=== PATIENT | female | born 1990 | race Caucasian/White ===

== ENCOUNTER 2019-04-25 16:42 | Observation (INO) | payer OTHER ==
[2019-04-25 18:52] VITALS: BP 127/69
[2019-04-25] MEDS ORDERED: NIFEdipine 10 MG CAPSULE PO ONE (20:45)
[2019-04-25] MEDS ORDERED: INFLUENZA VIRUS VACCINE QVS 2019-20 (3YR+)/PF 60 MCG/0.5 ML SYRINGE IM ONE (23:00)
== END 2019-04-25 23:25 | disposition home or self-care (01) ==
LOC: 4S 16:42
PROVIDERS: ADMIT Obstetrics & Gynecology; ATTEND Obstetrics & Gynecology
DX: O34.63 Maternal care for abnormality of vagina, third trimester (principal); N89.8 Other specified noninflammatory disorders of vagina; Z23 Encounter for immunization; Z3A.32 32 weeks gestation of pregnancy
CPT/HCPCS: 36415; 59025; 81001; 82731; 87070; 87081; 87210; 87491; 87591; 89060; 90471; 90686; G0378

== ENCOUNTER 2019-05-30 09:40 | Inpatient (IN) | payer OTHER ==
[~2019-05-30] VITALS: Ht 165.1 cm; Wt 82.1 kg
[2019-05-30 10:04] VITALS: BP 112/65
[2019-05-30] MEDS ORDERED: NIFEdipine 10 MG CAPSULE PO ONE ×2 (12:15→20:00)
[2019-05-30] MEDS: RINGERS SOLUTION,LACTATED 1,000 ML IV SCH ×3 (14:24→22:47)
[2019-05-30] MEDS ORDERED: ACETAMINOPHEN 500 MG TABLET PO ONE (14:45)
[2019-05-30] MEDS: ACETAMINOPHEN 500 MG TABLET PO PRN (20:09)
[2019-05-30 21:06] LABS: BASOPHILS % (AUTO) 0.3 % (0.0-2.0); EOSINOPHILS % (AUTO) 1.2 % (1.0-6.0); HEMATOCRIT 40.2 % (36-46); HEMOGLOBIN 13.8 g/dL (12.0-16.0); LYMPHOCYTES % (AUTO) 30.7 % (22.0-44.0); MEAN CORPUSCULAR HEMOGLOBIN 31.6 pg (26.0-34.0); MEAN CORPUSCULAR HGB CONC 34.3 G/dL (31.0-37.0); MEAN CORPUSCULAR VOLUME 92 fL (80-100); MONOCYTES # (AUTO) 0.5 K/uL (0.1-1.0); MONOCYTES % (AUTO) 8.3 % (2.0-9.0); NEUTROPHILS # (AUTO) 3.8 K/uL (1.8-7.7); NEUTROPHILS % (AUTO) 59.5 % (40.0-70.0); PLATELET COUNT (AUTO)-OB 182 K/uL (150-450); RED BLOOD CELL COUNT(AUTO) 4.36 MIL/uL (4.00-5.20); RED CELL DISTRIBUTION WIDTH 12.9 % (11.5-14.5)
[2019-05-30 21:15] LABS: ANION GAP 9 mmol/L (8-16); CALCIUM, TOTAL 8.7 mg/dL (8.8-10.5); CARBON DIOXIDE 24 mmol/L (22-29); CHLORIDE 105 mmol/L (98-107); CREATININE 0.72 mg/dL (0.60-1.30); GLOMERULAR FILTR. RATE CALC > 60 mL/min (>60); GLUCOSE,RANDOM 95 mg/dL (70-110); POTASSIUM 3.8 mmol/L (3.5-5.1); SODIUM SERUM 138 mmol/L (136-145); UREA NITROGEN, BLOOD 9 mg/dL (7-18)
[2019-05-30 21:21] LABS: ALANINE AMINOTRANSFERASE 13 U/L (12-78); ALBUMIN 2.7 g/dL (3.4-5.0); ALKALINE PHOSPHATASE 136 U/L (46-116); ASPARTATE AMINOTRANSFERASE 12 U/L (15-37); BILIRUBIN,TOTAL 0.2 mg/dL (0.1-1.0); TOTAL PROTEIN, SERUM 6.4 g/dL (6.4-8.2)
[2019-05-30] MEDS ORDERED: NIFEdipine 10 MG CAPSULE PO PRN (22:00)
[2019-05-31] MEDS: ACETAMINOPHEN 500 MG TABLET PO PRN (00:07)
[2019-05-31] MEDS: RINGERS SOLUTION,LACTATED 1,000 ML IV SCH ×2 (04:55→07:40)
[2019-05-31] MEDS ORDERED: PNV1TABL54 PO (06:18)
[2019-05-31] MEDS ORDERED: BUPIVACAINE HCL/DEX-WATER/PF 0.75% 2 ML AMP ONE (06:36)
[2019-05-31] MEDS ORDERED: RINGERS SOLUTION,LACTATED 1,000 ML IV ONE (06:36)
[2019-05-31] MEDS ORDERED: SODIUM CHLORIDE 0.9% 1,000 ML ONE (06:36)
[2019-05-31] MEDS ORDERED: METOCLOPRAMIDE HCL 5 MG/ML 2 ML VIAL IVP ONE ×2 (07:00→12:00)
[2019-05-31] MEDS ORDERED: CITRIC ACID/SODIUM CITRATE 30 ML SOLUTION UDCUP PO ONE (07:00)
[2019-05-31] MEDS ORDERED: HYDROmorphone 2 MG/ML SYRINGE IVP PRN ×2 (07:45→08:30)
[2019-05-31] MEDS ORDERED: FentaNYL CITRATE-PF 100 MCG/2 ML VIAL IVP PRN ×2 (07:45→08:30)
[2019-05-31] MEDS ORDERED: MEPERIDINE-PF 25 MG/ML VIAL IVP PRN ×2 (07:45→08:30)
[2019-05-31] MEDS ORDERED: OXYGEN THERAPY IH SCH ×3 (08:00→20:00)
[2019-05-31] MEDS ORDERED: ONDANSETRON HCL 4 MG/2 ML VIAL IVP PRN (08:30)
[2019-05-31] MEDS ORDERED: NALOXONE HCL 0.4 MG/ML VIAL IVP PRN (08:30)
[2019-05-31] MEDS ORDERED: OxyCODONE HCL/ACETAMINOPHEN 5-325 MG TABLET PO PRN (08:30)
[2019-05-31] MEDS ORDERED: DiphenhydrAMINE HCL 50 MG/ML VIAL IVP PRN (08:30)
[2019-05-31] MEDS ORDERED: FentaNYL CITRATE-PF 100 MCG/2 ML VIAL ONE (09:39)
[2019-05-31] MEDS ORDERED: LANOLIN 7 GM OINTMENT TP PRN (10:15)
[2019-05-31] MEDS ORDERED: ACETAMINOPHEN/CODEINE 300-30 MG TABLET PO PRN ×2 (10:15)
[2019-05-31] MEDS ORDERED: ONDANSETRON HCL 4 MG/2 ML VIAL ONE (10:26)
[2019-05-31] MEDS ORDERED: DEXTROSE 5%-0.45% SODIUM CHL 1,000 ML IV ONE (11:14)
[2019-05-31] MEDS: DEXTROSE 5%-0.45% SODIUM CHL 1,000 ML IV SCH ×3 (11:17→19:28)
[2019-05-31] MEDS ORDERED: ONDANSETRON HCL 4 MG/2 ML VIAL IVP ONE (12:00)
[2019-05-31] MEDS ORDERED: KETOROLAC TROMETHAMINE 60 MG/2 ML VIAL IM ONE (12:00)
[2019-05-31] MEDS ORDERED: DEXAMETHASONE SOD PHOS 4 MG/ML VIAL IVP ONE (12:00)
[2019-05-31] MEDS: KETOROLAC TROMETHAMINE 30 MG/ML VIAL IVP SCH ×2 (13:02→19:27)
[2019-06-01] MEDS: DEXTROSE 5%-0.45% SODIUM CHL 1,000 ML IV SCH (00:17)
[2019-06-01] MEDS: KETOROLAC TROMETHAMINE 30 MG/ML VIAL IVP SCH ×2 (01:19→07:40)
[2019-06-01] MEDS ORDERED: IBUPROFEN 800 MG TABLET PO SCH (02:00)
[2019-06-01] MEDS: IBUPROFEN 800 MG TABLET PO SCH (20:07)
[2019-06-01] MEDS: MAGNESIUM HYDROXIDE SUSPENSION 30 ML UDCUP PO SCH (20:08)
[2019-06-02] MEDS: IBUPROFEN 800 MG TABLET PO SCH ×4 (01:53→20:54)
[2019-06-02] MEDS: MAGNESIUM HYDROXIDE SUSPENSION 30 ML UDCUP PO SCH ×3 (08:11→10:12)
[2019-06-02] MEDS ORDERED: SENNA/DOCUSATE SODIUM 8.6-50 MG TABLET PO ONE (10:15)
[2019-06-03] MEDS: IBUPROFEN 800 MG TABLET PO SCH ×4 (02:21→20:47)
[2019-06-04] MEDS: IBUPROFEN 800 MG TABLET PO SCH ×2 (02:06→08:41)
[2019-06-04] MEDS ORDERED: PERCT PO (07:34)
[2019-06-04] MEDS ORDERED: ACET-66 PO (07:35)
[2019-06-04] MEDS ORDERED: DOCU-275 PO (07:36)
[2019-06-04] MEDS ORDERED: IBUP-2070 PO (07:36)
[2019-06-04] MEDS ORDERED: MORPHINE SULFATE/PF 0.5 MG/ML 10 ML AMP IVP ONE (12:00)
[2019-06-04] MEDS ORDERED: MIDAZOLAM HCL 2 MG/2 ML VIAL IVP ONE (12:00)
[2019-06-04] MEDS ORDERED: FentaNYL CITRATE-PF 100 MCG/2 ML VIAL IVP ONE (12:00)
== END 2019-06-04 13:40 | disposition home or self-care (01) | DRG 788 ==
LOC: 4S 09:40 → OBSVTOIN 09:40 → 4S 05-31 11:20
PROVIDERS: ADMIT Obstetrics & Gynecology; ATTEND Obstetrics & Gynecology
PROC: 10D00Z1 Extraction of Products of Conception, Low, Open Approach (ICD-10-PCS; principal; 2019-05-31)
DX: O34.211 Maternal care for low transverse scar from previous cesarean delivery (principal); B95.1 Streptococcus, group B, as the cause of diseases classified elsewhere; Z3A.37 37 weeks gestation of pregnancy; Z37.0 Single live birth
CPT/HCPCS: 76805; 86850; 86900; 86901; 87081; J0690; J1100; J1200; J1885; J2250; J2274; J2405; J2765; J3010; J3490; J7030; J7120